=== PATIENT | female | born 1955 | race Asian ===

== ENCOUNTER 2021-04-27 12:32 | Inpatient (IN) | payer OTHER ==
[~2021-04-27] VITALS: Ht 165.1 cm; Wt 56.4 kg
[2021-04-27 13:23] LABS: BASOPHILS % (AUTO) 0.9 % (0.0-2.0); EOSINOPHILS % (AUTO) 1.5 % (1.0-6.0); HEMATOCRIT 35.6 % (36-46); HEMOGLOBIN 11.9 g/dL (12.0-16.0); LYMPHOCYTES # (AUTO) 1.8 K/uL (1.0-4.8); LYMPHOCYTES % (AUTO) 30.2 % (22.0-44.0); MEAN CORPUSCULAR HEMOGLOBIN 29.1 pg (26.0-34.0); MEAN CORPUSCULAR HGB CONC 33.5 G/dL (31.0-37.0); MEAN CORPUSCULAR VOLUME 87 fL (80-100); MONOCYTES # (AUTO) 0.3 K/uL (0.1-1.0); MONOCYTES % (AUTO) 5.8 % (2.0-9.0); NEUTROPHILS # (AUTO) 3.6 K/uL (1.8-7.7); NEUTROPHILS % (AUTO) 61.6 % (40.0-70.0); PLATELET COUNT (AUTO) 293 K/uL (150-450); RED BLOOD CELL COUNT(AUTO) 4.09 MIL/uL (4.00-5.20); RED CELL DISTRIBUTION WIDTH 13.4 % (11.5-14.5)
[2021-04-27 13:30] LABS: ANION GAP 8 mmol/L (8-16); CALCIUM, TOTAL 9.2 mg/dL (8.8-10.5); CARBON DIOXIDE 27 mmol/L (22-29); CHLORIDE 106 mmol/L (98-107); CREATININE 0.74 mg/dL (0.60-1.30); GLOMERULAR FILTR. RATE CALC > 60 mL/min (>60); GLUCOSE,RANDOM 91 mg/dL (70-110); POTASSIUM 3.3 mmol/L (3.5-5.1); SODIUM SERUM 141 mmol/L (136-145); UREA NITROGEN, BLOOD 14 mg/dL (7-18)
[2021-04-27 13:35] LABS: B-TYPE NATRIURETIC PEPTIDE 25 pg/mL (0-100); PROTHROMBIN TIME 10.2 SEC (9.4-11.6)
[2021-04-27 13:59] LABS: ALANINE AMINOTRANSFERASE 23 U/L (12-78); ALBUMIN 3.7 g/dL (3.4-5.0); ALKALINE PHOSPHATASE 73 U/L (46-116); ASPARTATE AMINOTRANSFERASE 18 U/L (15-37); BILIRUBIN,TOTAL 0.2 mg/dL (0.1-1.0); CREATINE KINASE, TOTAL ONLY 154 U/L (26-192)
[2021-04-27] MEDS ORDERED: INSULIN LISPRO 100 UNITS/ML SQ PRN (14:15)
[2021-04-27] MEDS ORDERED: DEXTROSE 50%-WATER 25 GM/50 ML SYRINGE IVP PRN (14:15)
[2021-04-27] MEDS ORDERED: MAGNESIUM HYDROXIDE SUSPENSION 30 ML UDCUP PO PRN (14:15)
[2021-04-27] MEDS: ASPIRIN 81 MG CHEWABLE TABLET PO SCH (14:15)
[2021-04-27] MEDS: AmLODIPine BESYLATE 5 MG TABLET PO SCH (14:30)
[2021-04-27 14:35] LABS: APPEARANCE,URINE CLEAR (CLEAR); BILIRUBIN,URINE NEGATIVE (NEGATIVE); GLUCOSE, URINE (UA) NEGATIVE (NEGATIVE); KETONES,URINE NEGATIVE (NEGATIVE); LEUKOCYTE ESTERASE ,URINE SMALL (NEGATIVE); NITRATE,URINE NEGATIVE (NEGATIVE); OCCULT BLOOD,URINE NEGATIVE (NEGATIVE); PROTEIN,URINE NEGATIVE (NEGATIVE); UROBILINOGEN,URINE 0.2 mg/dL (<=1.0)
[2021-04-27 14:53] LABS: BACTERIA,URINE None Seen /HPF (None Seen); RBC,URINE None Seen /HPF (0-2); SQUAMOUS EPITHELIAL CELL,UR Few /LPF (None Seen); WBC,URINE 0-2 /HPF (0-5)
[2021-04-27 15:22] LABS: THYROID STIMULATING HORMONE 1.29 uIU/mL (0.36-3.74)
[2021-04-27] MEDS: HEPARIN SODIUM,PORCINE 5,000 UNITS/ML VIAL SQ SCH (16:00)
[2021-04-27] MEDS ORDERED: ACETAMINOPHEN 325 MG TABLET ONE (19:30)
[2021-04-27] MEDS: ACETAMINOPHEN 325 MG TABLET PO PRN (19:46)
[2021-04-27] MEDS: LOSARTAN POTASSIUM 25 MG TABLET PO SCH (20:46)
[2021-04-27 23:40] VITALS: BP 155/75
[2021-04-28 01:25] LABS: GLUCOMETER DEV NAME(LOC) 5S.2B; GLUCOSE,POINT OF CARE 98 MG/DL (70-110)
[2021-04-28 03:45] VITALS: BP 141/65
[2021-04-28 04:14] LABS: COVID AG,FIA SOURCE NASOPHARYNGEAL
[2021-04-28] MEDS: ACETAMINOPHEN 325 MG TABLET PO PRN (06:11)
[2021-04-28 07:34] VITALS: BP 142/61
[2021-04-28] MEDS: HEPARIN SODIUM,PORCINE 5,000 UNITS/ML VIAL SQ SCH ×2 (08:00)
[2021-04-28] MEDS: AmLODIPine BESYLATE 5 MG TABLET PO SCH (08:21)
[2021-04-28] MEDS: ASPIRIN 81 MG CHEWABLE TABLET PO SCH (08:21)
[2021-04-28] MEDS: LOSARTAN POTASSIUM 25 MG TABLET PO SCH (08:23)
[2021-04-28 11:38] VITALS: BP 133/69
[2021-04-28] MEDS ORDERED: AMLO-257 PO (14:51)
== END 2021-04-28 15:14 | disposition home or self-care (01) | DRG 312 ==
LOC: EMS 12:36 → 5S 22:52
PROVIDERS: ADMIT Internal Medicine; ATTEND Internal Medicine
DX: R55 Syncope and collapse (principal); S06.0X9A Concussion with loss of consciousness of unspecified duration, initial encounter; Z20.822 Contact with and (suspected) exposure to COVID-19; I10 Essential (primary) hypertension; W01.0XXA Fall on same level from slipping, tripping and stumbling without subsequent striking against object, initial encounter; R51.9 Headache, unspecified; E11.9 Type 2 diabetes mellitus without complications; Z79.899 Other long term (current) drug therapy; Z83.3 Family history of diabetes mellitus; Y93.89 Activity, other specified; Y92.89 Other specified places as the place of occurrence of the external cause; Y99.8 Other external cause status
CPT/HCPCS: 70450; 71045; 72125; 80053; 81001; 82550; 82962; 83880; 84443; 84484; 85025; 85610; 85730; 93005; 93306; 99285; G0378; 36415-L1; 36415-TC